=== PATIENT | female | born 1955 | race Caucasian/White ===

== ENCOUNTER → 2021-03-16 | Outpatient (CLI) | payer MEDICARE, OTHER ==
[~2021-03-16] MED LIST: ISOSORBIDE MONO30 MG PO
== END ==
LOC: HEART 5 08:01
DX: R94.31 Abnormal electrocardiogram [ECG] [EKG] (principal); R77.8 Other specified abnormalities of plasma proteins
CPT/HCPCS: 78452; A9502; J2785

== ENCOUNTER 2021-03-19 05:42 | Emergency (ER) | payer MEDICARE, OTHER ==
[2021-03-19 06:42] LABS: HEMOGLOBIN 14.2 gm/dl (12.3-15.3); RED BLOOD COUNT 4.92 M/UL (4.00-5.10); WHITE BLOOD COUNT 6.8 K/UL (4.5-11.0)
[2021-03-19 07:36] LABS: BUN/CREATININE RATIO 11 (0-10)
[2021-03-19] MEDS ORDERED: ISOSORBIDE MONO30 MG PO (10:14)
== END 2021-03-19 11:21 | disposition home or self-care (01) ==
LOC: ER1 05:42
PROVIDERS: Nurse Practitioner
DX: J44.9 Chronic obstructive pulmonary disease, unspecified (principal); K52.9 Noninfective gastroenteritis and colitis, unspecified; Z79.82 Long term (current) use of aspirin; Z88.0 Allergy status to penicillin; Z88.2 Allergy status to sulfonamides; F17.210 Nicotine dependence, cigarettes, uncomplicated; I25.2 Old myocardial infarction; E78.5 Hyperlipidemia, unspecified
CPT/HCPCS: 36415; 71045; 80053; 81001; 82550; 82553; 83874; 84484; 85025; 93005; 99285; Q9967